=== PATIENT | male | born 1965 | race Caucasian/White ===

== ENCOUNTER 2020-06-17 12:22 | Outpatient (CLI) | payer BC, SELFPAY ==
--- NOTE | ~2020-06-17 | MR_ITS ---
EXAMINATION: MR brain/brain stem wo/w con DATE: 06/17/2020 14:36 INDICATION: Multiple sclerosis. TECHNIQUE: Magnetic resonance imaging (MRI) of the brain and brainstem was performed without and with 18 mL MultiHance intravenous contrast. Sequences included sagittal and axial T1-weighted FLAIR, axia l T1-weighted FSE, axial diffusion-weighted FS EPI, sagittal T2-weighted FLAIR, axial T2*-weighted GR E, axial T2-weighted FLAIR Propeller, and axial T2-weighted Propeller. Postcontrast sequences include d axial, coronal, and sagittal T1-weighted FSE. Apparent diffusion coefficient (ADC) maps were create d. COMPARISON: None. FINDINGS: There are approximately 20 total lesions of increased T2-weighted signal intensity in the b rain. Of these lesions, approximately several are periventricular, some are juxtacortical, and none a re infratentorial. None of the lesions enhance. There is no acute ischemic infarct or intracranial he morrhage. The ventricles are normal in size. The orbits are normal. There is mild mucosal thickening in the paranasal sinuses. The mastoid air cells are normal. IMPRESSION: 1. Mild nonspecific cerebral white matter disease, consistent with multiple sclerosis and/or chronic small vessel ischemic disease. Reviewed, dictated and finalized at location A. IMPRESSION: 1. Mild nonspecific cerebral white matter disease, consistent with multiple scl erosis and/or chronic small vessel ischemic disease.
[2020-06-17 13:36] LABS: Estimated Glomerular Filt Rate > 60
== END 2020-06-17 12:23 | disposition home or self-care (01) ==
PROVIDERS: Visit Provider Psychiatry & Neurology Neurology
DX: G35 Multiple sclerosis (principal)
CPT/HCPCS: 70553; A9577

== ENCOUNTER 2021-02-04 10:10 | Outpatient (CLI) | payer BC, SELFPAY ==
--- NOTE | 2021-02-04 11:00 | NEURO_ITS ---
Impression: # Complains of numbness of hands, right more than left. # Right ulnar neuropathy across the elbow. # Evolving right Carpal Tunnel Syndrome. # Normal needle/EMG exam. Nerve Conduction Studies Anti Sensory Summary Table Stim Site NR Peak (ms) P-T Amp (?V) Site1 Site2 Delta-P (ms) Dist (cm) Mahendra (m/s) Left Median Anti Sensory (2-3nd Digit) Wrist 2.9 46.3 Wrist 2-3nd Digit 2.9 14.0 48 Wrist 2.9 85.0 Wrist 2-3nd Digit 2.9 14.0 48 Right Median Anti Sensory (2-3nd Digit) Wrist 3.3 79.8 Wrist 2-3nd Digit 3.3 14.0 42 Wrist 3.3 93.4 Wrist 2-3nd Digit 3.3 14.0 42 Left Radial Anti Sensory (Base 1st Digit) Wrist 1.9 35.9 Wrist Base 1st Digit 1.9 0.0 Right Radial Anti Sensory (Base 1st Digit) Wrist 2.3 25.0 Wrist Base 1st Digit 2.3 0.0 Left Ulnar Anti Sensory (5th Digit) Wrist 2.7 67.1 Wrist 5th Digit 2.7 14.0 52 Right Ulnar Anti Sensory (5th Digit) Wrist 2.8 60.8 Wrist 5th Digit 2.8 14.0 50 Motor Summary Table Stim Site NR Onset (ms) O-P Amp (mV) Site1 Site2 Delta-0 (ms) Dist (cm) Mahendra (m/s) Left Median Motor (Abd Poll Brev) Wrist 3.5 1.9 Elbow Wrist 4.8 30.0 62 Elbow 8.3 1.5 Right Median Motor (Abd Poll Brev) Wrist 4.0 1.9 Elbow Wrist 4.6 27.0 59 Elbow 8.6 3.9 Left Ulnar Motor (Abd Dig Minimi) Wrist 2.7 6.7 A Elbow Wrist 5.0 29.0 58 A Elbow 7.7 4.8 Right Ulnar Motor (Abd Dig Minimi) Wrist 2.8 7.8 A Elbow Wrist 5.9 28.0 47 A Elbow 8.7 7.3 B Elbow Wrist 3.7 22.0 59 B Elbow 6.5 5.6 F Wave Studies NR F-Lat (ms) L-R F-Lat (ms) Left Median (Mrkrs) (Abd Poll Brev) 27.50 1.33 Right Median (Mrkrs) (Abd Poll Brev) 28.83 1.33 Left Ulnar (Mrkrs) (Abd Dig Min) 27.89 0.78 Right Ulnar (Mrkrs) (Abd Dig Min) 28.67 0.78 EMG Side Muscle Nerve Root Ins Act Fibs Amp Dur Recrt Comment Right 1stDorInt Ulnar C8-T1 Nml Nml Nml Nml Nml Right Ext Indicis Radial (Post Int) C7-8 Nml Nml Nml Nml Nml Right Ext Digitorum Radial (Post Int) C7-8 Nml Nml Nml Nml Nml Right BrachioRad Radial C5-6 Nml Nml Nml Nml Nml Right PronatorTeres Median C6-7 Nml Nml Nml Nml Nml Right Abd Poll Brev Median C8-T1 Nml Nml Nml Nml Nml Left 1stDorInt Ulnar C8-T1 Nml Nml Nml Nml Nml Left Ext Indicis Radial (Post Int) C7-8 Nml Nml Nml Nml Nml Left Ext Digitorum Radial (Post Int) C7-8 Nml Nml Nml Nml Nml Left BrachioRad Radial C5-6 Nml Nml Nml Nml Nml Left PronatorTeres Median C6-7 Nml Nml Nml Nml Nml Left Abd Poll Brev Median C8-T1 Nml Nml Nml Nml Nml MTDD
== END 2021-02-04 10:11 | disposition home or self-care (01) ==
PROVIDERS: Visit Provider Psychiatry & Neurology Neurology
DX: R20.2 Paresthesia of skin (principal); G56.21 Lesion of ulnar nerve, right upper limb
CPT/HCPCS: 95886; 95911

== ENCOUNTER 2024-02-25 12:41 | Outpatient (CLI) | payer BC, SELFPAY ==
--- NOTE | ~2024-02-25 | MR_ITS ---
EXAMINATION: MR cervical spine wo/w con DATE: 02/25/2024 14:17 INDICATION: Multiple sclerosis. TECHNIQUE: Magnetic resonance imaging (MRI) of the cervical spine was performed without and with 20 m L MultiHance intravenous contrast. COMPARISON: None FINDINGS: There is 11 degrees dextroscoliosis of cervicothoracic spine. Vertebral body heights are no rmal. There is moderately decreased disc height at C5-C6. There are approximately 6 lesions of increa sed T2-weighted signal intensity in the spinal cord without contrast enhancement. The following disc levels are specifically discussed: C2-C3: The disc does not extend beyond the endplate margin. There is no uncovertebral joint osteoarth ritis. There is mild left facet joint osteoarthritis. There is no neural foraminal stenosis. There is no central canal stenosis. C3-C4: The disc does not extend beyond the endplate margin. There is mild right uncovertebral joint o steoarthritis. There is severe right and mild left facet joint osteoarthritis. There is mild right ne ural foraminal stenosis. There is no central canal stenosis. C4-C5: The disc does not extend beyond the endplate margin. There is no uncovertebral joint osteoarth ritis. There is no facet joint osteoarthritis. There is no neural foraminal stenosis. There is no mau tral canal stenosis. C5-C6: The disc is bulging. There is moderate right and severe left uncovertebral joint osteoarthriti s. There is moderate left facet joint osteoarthritis. There is moderate left neural foraminal stenosi s. There is mild central canal stenosis. C6-C7: The disc is bulging. There is mild left uncovertebral joint osteoarthritis. There is mild bila teral facet joint osteoarthritis. There is mild left neural foraminal stenosis. There is no central c anal stenosis. C7-T1: The disc does not extend beyond the endplate margin. There is no uncovertebral joint osteoarth ritis. There is severe bilateral facet joint osteoarthritis. There is mild bilateral neural foraminal stenosis. There is no central canal stenosis. IMPRESSION: 1. Spinal cord lesions, consistent with multiple sclerosis. 2. Moderate cervical spondylosis. 3. Cervicothoracic dextroscoliosis. Reviewed, dictated and finalized at location A.
--- NOTE | ~2024-02-25 | MR_ITS ---
EXAMINATION: MR thoracic spine wo/w con DATE: 02/25/2024 14:17 INDICATION: Multiple sclerosis. TECHNIQUE: Magnetic resonance imaging (MRI) of the thoracic spine was performed without and with 20 m L MultiHance intravenous contrast. COMPARISON: None FINDINGS: There is 8 degrees levocurvature of thoracic spine. There is mild chronic anterior wedging of T11 and T12 vertebral bodies. There are Schmorl's nodes at multiple levels. Intervertebral disc he ights are normal. At T2-T3, there is a central extrusion with mild central canal stenosis. At T6-T7, there is a right central protrusion with mild central canal stenosis and ventral indentation of the s devin cord. At T9-T10, the disc is bulging with mild central canal stenosis. There is multilevel face t joint osteoarthritis, severe at several levels. There is mild neural foraminal stenosis at multiple levels on either side. On the right, there is moderate neural foraminal stenosis at T6-T7. There are multiple scattered lesions of increased T2-weighted signal intensity in the spinal cord without cont rast enhancement. IMPRESSION: 1. Spinal cord lesions, consistent with multiple sclerosis. 2. Mild thoracic spondylosis. Reviewed, dictated and finalized at location A.
--- NOTE | ~2024-02-25 | MR_ITS ---
EXAMINATION: MR brain/brain stem wo/w con DATE: 02/25/2024 14:17 INDICATION: Multiple sclerosis. TECHNIQUE: Magnetic resonance imaging (MRI) of the brain and brainstem was performed without and with 20 mL MultiHance intravenous contrast. COMPARISON: Brain MRI 07/18/2020 FINDINGS: There are greater than 20 total lesions of increased T2-weighted signal intensity in the br ain. Of these lesions, several are periventricular, some are juxtacortical, and none are infratentori al. None of the lesions enhance. There is no acute ischemic infarct or intracranial hemorrhage. The v entricles are normal in size. There is mild mucosal thickening in the paranasal sinuses. The orbits a re normal. The mastoid air cells are normal. IMPRESSION: 1. Worsened mild nonspecific cerebral white matter disease, which may be multiple sclerosis and/or ch ronic small vessel ischemic disease. Reviewed, dictated and finalized at location A. IMPRESSION: 1. Worsened mild nonspecific cerebral white matter disease, which may be multip le sclerosis and/or chronic small vessel ischemic disease.
== END 2024-02-25 12:42 ==
LOC: MICIMG 12:42
PROVIDERS: PCP Student in an Organized Health Care Education/Training Program; Visit Provider Student in an Organized Health Care Education/Training Program
DX: G35 Multiple sclerosis (principal); M47.894 Other spondylosis, thoracic region; M47.892 Other spondylosis, cervical region; R90.82 White matter disease, unspecified
CPT/HCPCS: 70553; 72156; 72157; A9577